=== PATIENT | male | born 1955 | race Caucasian/White ===

== ENCOUNTER → 2016-10-05 | Outpatient (CLI) | payer MEDICARE ==
--- NOTE | ~2016-10-05 | ECH ---
Transthoracic Echocardiography Report (TTE) Demographics Patient Name GLADIS CUNNINGHAM Date of Study 10/05/2016 J Patient Number [id number] Visit Number [id number] Date of 1955 Room Number Accession Number [id number] Gender Male Age 61 year(s) Referring Henry Soriano MD Composition Molder Lisa Clemens [facility] Physician Physician Interpreting Carmela Franco MD Propeller Inspector Physician Supervising Ordering Physician Henry Soriano MD, MD/P Nurse Stress Call Center Operations Manager Conclusions Summary Technically good exam. The estimated left ventricular ejection fraction is 25-30%. Mild to moderate left ventricular hypertrophy. Mildly dilated right ventricle with normal systolic function. The left atrium is severely dilated by LA volume index measurement. The right atrium is moderate to severely dilated. Mild-moderate mitral regurgitation by color Doppler. Mild-moderate tricuspid regurgitation by color Doppler. There is moderate pulmonary hypertension. The pulmonary pressure (RVSP) is 52mmHg. Mild pulmonic valve regurgitation by color Doppler. Procedure Type of Study TTE procedure:Echo Complete SF. Procedure Date Date: 10/05/2016 Start: 12:36 PM Technical Quality: Adequate visualization Indications:Shortness of breath. Appropriate Use Criteria: 9 Height: 71 inches Weight: 145 pounds BSA: 1.84 m Rhythm: Sinus tachycardia HR: 103 bpm BP: 127/70 mmHg M-Mode/2D Measurements LV Diastolic Dimension: 5.63 cm LV Systolic Dimension: 4.79 cm LV Septum Diastolic: 1.34 cm LV PW Diastolic: 1.47 cm AO Root Dimension: 2.96 cm Cardiac Output: 3.53 l/min LA Dimension: 5.45 cm Cardiac Index: 1.92 l/min*m RV Diastolic Dimension: 4.1 cm LA volume index: 65 ml/m LVOT: 2.07 cm LVOT VTI: 10.2 cm RV Base: 5 cm LV Stroke volume: 34.31 ml RV Mid: 3.1 cm LV Stroke volume index: 18.65 ml/m RV Length: 8.1 cm TAPSE: 1.86 cm TDI-S': 10 cm/s Doppler Measurements AV Peak Velocity: 1 m/s MV Peak E-Wave: 1.09 m/s AV Peak Gradient: 4 mmHg AV Mean Gradient: 3.23 mmHg LVOT Peak Velocity: 0.6 m/s AV Area (Continuity):2.13 cm PV Peak Velocity: 0.76 m/s TR Velocity:3.04 m/s PV Peak Gradient: 2.32 mmHg TR Gradient:36.97 mmHg Estimated PASP: 51.97 mmHg Estimated RAP:15 mmHg Estimated RVSP: 52 mmHg RA Area: 25.55 cm Findings Left Ventricle The left ventricle is normal in size . Mild to moderate left ventricular hypertrophy. Diastolic function indeterminate due to patient's arrhythmia. Right Ventricle Mildly dilated right ventricle with normal systolic function. Left Atrium The left atrium is severely dilated by LA volume index measurement. Right Atrium The right atrium is moderate to severely dilated. Mitral Valve Normal mitral valve structure and function. Mild-moderate mitral regurgitation by color Doppler. Aortic Valve Normal aortic valve structure and function. Tricuspid Valve Normal appearing tricuspid valve. Mild-moderate tricuspid regurgitation by color Doppler. There is moderate pulmonary hypertension. The pulmonary pressure (RVSP) is 52mmHg. Pulmonic Valve Normal pulmonic valve structure and function. Mild pulmonic valve regurgitation by color Doppler. Pericardial Effusion Epicardial fat pad noted. Miscellaneous Visualized portions of the aortic root and ascending aorta appear normal in size. Pleural Effusion No evidence of pleural effusion. Contractility Score LV regional wall motion:(0-Non visualized 1-Normal 2-Hypokinesis 3-Akinesis 4-Dyskinesis 5-Aneurysm) Signature
== END | disposition home or self-care (01) ==
LOC: CARD 09-23 09:00
DX: R06.02 Shortness of breath (principal); I51.7 Cardiomegaly; I27.2 Other secondary pulmonary hypertension; I37.1 Nonrheumatic pulmonary valve insufficiency; I34.0 Nonrheumatic mitral (valve) insufficiency; I07.1 Rheumatic tricuspid insufficiency